=== PATIENT | female | born 1965 | race Caucasian/White ===

== ENCOUNTER 2022-06-12 10:27 | Emergency (ER) | payer BC ==
[2022-06-12 10:49] VITALS: BP 142/63; PULSE 93; RESP 18; TEMP 99.5; BMI 28.1
== END 2022-06-12 10:56 | disposition home or self-care (01) ==
LOC: FER 10:27
DX: R10.30 Lower abdominal pain, unspecified (principal)
CPT/HCPCS: 99283-25